=== PATIENT | male | born 1985 | race Caucasian/White ===

== ENCOUNTER 2017-02-21 07:30 | Emergency (ER) | payer OTHER ==
[~2017-02-21] VITALS: Ht 175.3 cm; Wt 107.3 kg
[2017-02-21 08:19] LABS: BASOPHIL % 1.1 % (0-2); PLATELET COUNT 263 x10^3mcL (130-400); RED CELL DISTRIBUTION WIDTH 12.6 % (11.5-14.5)
[2017-02-21 08:27] LABS: CALCIUM 8.6 mg/dL (8.5-10.1); CARBON DIOXIDE 31.2 mmol/L (21-32); CHLORIDE SERUM 105 mmol/L (98-107); GFR1 > 60 mL/min; GLUCOSE SERUM 92 mg/dL (74-106); POTASSIUM SERUM 3.9 mmol/L (3.5-5.1); SODIUM SERUM 142 mmol/L (136-145)
[2017-02-21 08:31] LABS: ALKALINE PHOSPHATASE 62 U/L (46-116); ALT/SGPT 32 U/L (16-63); AMYLASE 61 U/L (25-115); AST/SGOT 28 U/L (15-37); BILIRUBIN TOTAL 0.45 mg/dL (0.20-1.00); LIPASE 123 IU/L (73-393); TOTAL PROTEIN, SERUM 7.9 g/dL (6.4-8.2)
[2017-02-21 08:51] LABS: AMPHETAMINE QUAL UR NONE DETECTED (NEG <=1000)
[2017-02-21 09:47] VITALS: BP 117/66
== END 2017-02-21 09:47 | disposition home or self-care (01) ==
LOC: ED 07:30
PROVIDERS: Emergency Medicine
DX: M54.9 Dorsalgia, unspecified (principal); R07.9 Chest pain, unspecified
CPT/HCPCS: 80307; 85378; G0480

== ENCOUNTER 2018-01-28 13:56 | Emergency (ER) | payer OTHER ==
[~2018-01-28] VITALS: Ht 175.3 cm; Wt 110.2 kg
[2018-01-28 14:07] VITALS: Ht 175.3 cm; Wt 110.2 kg
[2018-01-28 16:48] VITALS: BP 135/90
== END 2018-01-28 16:48 | disposition home or self-care (01) ==
LOC: ED 13:56
DX: H60.92 Unspecified otitis externa, left ear (principal); R11.10 Vomiting, unspecified
CPT/HCPCS: J3010; Q0162